=== PATIENT | female | born 1995 | race Caucasian/White ===

== ENCOUNTER 2019-11-25 09:11 | Inpatient (IN) ==
[2019-11-25] MEDS ORDERED: ceFAZolin 2,000 MG in PREMIX 1 EACH IV ONE (09:33)
[2019-11-25] MEDS ORDERED: FAMOTIDINE 20 MG/2 ML VIAL IV ONE (09:33)
[2019-11-25] MEDS ORDERED: CITRIC ACID/SODIUM CITRATE 30 ML UDCUP PO ONE (09:33)
[2019-11-25 09:54] LABS: Basophils % 0.4 % (0.0-0.8); Eosinophils % 0.6 % (0.00-10.9); Hematocrit 33.6 VOL% (35.7-47.0); Hemoglobin 11.2 GM/DL (12.0-16.0); Immature Granulocytes % 0.6 %; Immature Granulocytes Absolute 0.04 #; Lymphocytes # 1.9 10*3/uL (1.4-4.0); Lymphocytes % 26.2 % (21.3-54.2); Mean Corpuscular HGB Conc 33.3 GM/DL (32-36); Mean Corpuscular Volume 96.3 FL (87-102); Mean Platelet Volume 10.2 FL (9.6-12.0); Monocytes % 7.2 % (1.7-12.7); Platelet Count 173 T/CUMM (130-400); Red Blood Count 3.49 MC/CUMM (3.8-5.5); White Blood Count 7.1 T/CUMM (4-12)
[2019-11-25] MEDS: LACTATED RINGERS 1,000 ML IV SCH ×2 (10:06→13:28)
[2019-11-25 10:19] LABS: Albumin 2.8 G/DL (3.4-5.0); Bilirubin,Total 0.4 MG/DL (0.2-1.0); Calcium 8.4 MG/DL (8.5-10.1); Osmolality,Calculated 269.8 MOS/KG (273-304); Total Protein 6.8 G/DL (6.4-8.3)
[2019-11-25] MEDS ORDERED: OXYTOCIN 10 UNIT/ML VIAL IM ONE (10:21)
[2019-11-25] MEDS ORDERED: OXYTOCIN/LR 30 UNIT/1,000 ML BAG IV ONE (10:21)
[2019-11-25 18:09] LABS: Cord Venous Blood HCO3 24.4 MMOL/L; Cord Venous Blood PCO2 37.8 MMHG; Cord Venous Blood PO2 24.9
[2019-11-25] MEDS ORDERED: ACETAMINOPHEN 325 MG TABLET PO PRN (18:16)
[2019-11-25] MEDS ORDERED: RHO(D) IMMUNE GLOBULIN 300 MCG SYRINGE IM ONE (18:16)
[2019-11-25] MEDS ORDERED: ONDANSETRON 4 MG/2 ML VIAL IV PRN (18:16)
[2019-11-25] MEDS ORDERED: OXYTOCIN/LR 20 UNIT/1,000 ML BAG IV ONE (18:16)
[2019-11-25 18:30] LABS: Apearance,Urine CLEAR (Clear); Bilirubin,Urine Negative (Negative); Blood, Urine Negative (Negative); Glucose,Urine (UA) Negative (Negative); Ketones,Urine Negative (Negative); Mucus,Urine Occasional /LPF (Occasional); Nitrite,Urine Negative (Negative); Protein,Urine Negative; RBC,Urine 1 /HPF (0-4); Squamous Epithelial Cell,Urine Occasional /HPF (0-10); Urine Color Straw (Yellow); Urine Specific Gravity 1.011 (1.001-1.035); Urine Urobilinogen < 2.0 EU/DL (0.2-1.0); WBC,Urine <1 /HPF (0-6)
[2019-11-25] MEDS ORDERED: ceFAZolin 1,000 MG in SYRINGE 1 EACH IV SCH (18:30)
[2019-11-25] MEDS ORDERED: LACTATED RINGERS 1,000 ML IV SCH (18:30)
[2019-11-25] MEDS ORDERED: PHENYLEPHRINE 1 MG/10 ML SYRINGE IV ONE (18:35)
[2019-11-25] MEDS ORDERED: MORPHINE 10 MG/10 ML VIAL ONE (18:36)
[2019-11-25] MEDS ORDERED: MIDAZOLAM 2 MG/2 ML VIAL ONE (18:36)
[2019-11-25] MEDS ORDERED: BUPIVACAINE 0.25% 50 ML VIAL ONE (18:37)
[2019-11-25] MEDS ORDERED: BUPIVACAINE SPINAL 0.75% 2 ML AMP SPINAL ONE (18:37)
[2019-11-25] MEDS: SIMETHICONE CHEW 80 MG TABLET PO PRN (19:42)
[2019-11-25] MEDS: IBUPROFEN 800 MG TABLET PO PRN (20:33)
[2019-11-25] MEDS: DOCUSATE SODIUM 100 MG CAPSULE PO SCH (22:44)
[2019-11-25] MEDS: diphenhydrAMINE 50 MG/1 ML VIAL IV PRN (23:40)
[2019-11-26] MEDS: ceFAZolin 1,000 MG in SYRINGE 1 EACH IV SCH ×2 (01:44→08:57)
[2019-11-26 05:54] LABS: Basophils % 0.3 % (0.0-0.8); Eosinophils # 0.1 10*3/uL (0.0-0.87); Eosinophils % 0.6 % (0.00-10.9); Hematocrit 28.9 VOL% (35.7-47.0); Hemoglobin 9.8 GM/DL (12.0-16.0); Immature Granulocytes % 0.3 %; Immature Granulocytes Absolute 0.03 #; Lymphocytes % 21.1 % (21.3-54.2); Mean Corpuscular HGB Conc 33.9 GM/DL (32-36); Mean Corpuscular Volume 96.3 FL (87-102); Mean Platelet Volume 10.4 FL (9.6-12.0); Monocytes % 6.6 % (1.7-12.7); Neutrophils % 71.1 % (38.7-73.9); Platelet Count 121 T/CUMM (130-400); Red Cell Distribution Width 13.1 % (9.3-17.3); White Blood Count 9.6 T/CUMM (4-12)
[2019-11-26] MEDS: SIMETHICONE CHEW 80 MG TABLET PO PRN ×3 (06:37→22:20)
[2019-11-26] MEDS: diphenhydrAMINE 50 MG/1 ML VIAL IV PRN (06:37)
[2019-11-26] MEDS: MAGNESIUM HYDROXIDE SUSP 30 ML UDCUP PO PRN ×2 (08:53→21:15)
[2019-11-26] MEDS: MULTIVITAMIN (PRENATAL) TABLET PO SCH (08:53)
[2019-11-26] MEDS: METOCLOPRAMIDE 10 MG TABLET PO SCH ×2 (08:54→15:34)
[2019-11-26] MEDS: FERROUS SULFATE 325 MG TABLET PO SCH (08:56)
[2019-11-26] MEDS: DOCUSATE SODIUM 100 MG CAPSULE PO SCH ×2 (08:56→21:15)
[2019-11-26] MEDS: IBUPROFEN 800 MG TABLET PO PRN (15:34)
[2019-11-27] MEDS: METOCLOPRAMIDE 10 MG TABLET PO SCH (00:03)
[2019-11-27] MEDS ORDERED: BISACODYL 10 MG SUPP RECTAL PRN (00:48)
[2019-11-27] MEDS: IBUPROFEN 800 MG TABLET PO PRN (03:15)
[2019-11-27 08:40] VITALS: BP 98/57
[2019-11-27] MEDS: MULTIVITAMIN (PRENATAL) TABLET PO SCH (09:13)
[2019-11-27] MEDS: DOCUSATE SODIUM 100 MG CAPSULE PO SCH (09:13)
[2019-11-27] MEDS: FERROUS SULFATE 325 MG TABLET PO SCH (09:13)
== END 2019-11-27 12:00 | disposition home or self-care (01) | DRG 540 ==
LOC: N.LD 09:11 → N.OB 22:55
PROVIDERS: ADMIT Obstetrics & Gynecology; ATTEND Obstetrics & Gynecology
PROC: LDCSECT (ICD-10-PCS; 2019-11-25 11:45)